=== PATIENT | female | born 1960 | race Caucasian/White ===

== ENCOUNTER 2020-09-24 10:05 | Outpatient (REF) | payer SELFPAY ==
[2020-09-24 11:55] LABS: Cholesterol 140 mg/dL
== END 2020-09-24 10:06 | disposition home or self-care (01) ==
LOC: HO.LNC 10:05
PROVIDERS: Visit Provider Pathology Anatomic Pathology & Clinical Pathology
DX: Z13.89 Encounter for screening for other disorder (principal)
CPT/HCPCS: 82465

== ENCOUNTER 2020-12-06 20:29 | Emergency (ER) | payer OTHER, SELFPAY ==
[2020-12-06 21:35] VITALS: BP 129/75; PULSE 86; RESP 16; TEMP 36.6; O2SAT 97
[2020-12-06 21:52] VITALS: BP 129/75; PULSE 86; RESP 16; TEMP 36.6; O2SAT 97; BMI 22.8
--- NOTE | 2020-12-06 22:40 | ED.WOUNDLAC ---
HPI - Wound/Laceration General Chief Complaint: Wound/Laceration Stated Complaint: Finger lac Time Seen by Provider: 12/06/20 22:40 Source: patient Mode of arrival: ambulatory History of Present Illness HPI narrative: This is a 60-year-old female who presents after accidental laceration to dorsal aspect of index and middle fingers at the DIP that occurred just prior to arrival. Patient denies any numbness/tingling or inability to move fingers in normal fashion. She confirms that her last tetanus was in 2018. Related Data Allergies Allergy/AdvReac Type Severity Reaction Status Date / Time Sulfa (Sulfonamide Allergy Rash Verified 12/06/20 21:51 Antibiotics) Review of Systems Review of Systems: Pertinent positives and negatives as stated in HPI 10 point review of systems is otherwise negative. PMFSH Past Medical History Source: nursing notes reviewed Medical History No known health problems Social History Social History Advance Directives: No Physical Exam Vital Signs: Vital Signs: Last Vital Signs Temp 97.8 F 12/06/20 21:52 Pulse 86 12/06/20 21:52 Resp 16 12/06/20 21:52 BP 129/75 12/06/20 21:52 Pulse Ox 97 12/06/20 21:52 Body Mass Index 22.8 VITAL SIGNS: Reviewed. GENERAL: Well developed, well nourished, in no acute distress. NOSE: Nares patent bilateral OROPHARYNX: no oral lesions noted, posterior pharynx clear NECK: Supple, no adenopathy LUNGS: Normal breath sounds. SpO2<97> CARDIOVASCULAR: Regular rate and rhythm without noted murmurs ABDOMEN: Soft, non-tender, non-distended with bowel sounds. RIGHT INDEX/MIDDLE FINGER: 2 cm laceration involving proximal nail bed and distal to DIP of the index finger with good hemostasis and capillary refill less than 3 seconds with sensation intact, maintenance of full range of motion noted at MCP/PIP/DIP of index finger. Middle finger has superficial laceration approximately 1.5 cm that will not necessitate repair with sutures. NEUROLOGIC: Alert and oriented x 4. Strength and sensation to light touch were grossly intact x 4. Course Course Course Narrative: This is a 60-year-old female with history and clinical presentation consistent with laceration to dorsal aspect of right index finger which was repaired with 3 sutures and no noted complications. Patient was discharged with instructions to follow-up in 5 days for suture removal either to primary care provider or this emergency department. Procedures Laceration Laceration 1: Site: hand Side (If applicable): right Size (cm): 2 Description: linear Depth: simple, single layer Local Anesthetic: lidocaine 2% Amount of anesthesia used (mL): 5 Pre-repair: wound explored, irrigated extensively and deep structures intact Skin layer closed with: nylon Size (cm): 4-0 Number of sutures: 3 Technique: simple, interrupted Discharge Plan Discharge Clinical Impression: Laceration Patient Disposition: Home, Self-Care Instructions: Finger Laceration (ED), Care For Your Stitches (ED) Additional Instructions: May use [id number] Tylenol/ibuprofen as needed for pain control please follow the directions on the outside of the bottle. Cleanse injury gently with soap and water and blot dry, apply antibiotic ointment and cover with a Band-Aid. Do not hesitate to return to the emergency department should you develop any redness, swelling, purulence drainage or developed fevers, chills. Referrals: Melissa Mann DO [Primary Care Provider] - 5 days (Re-evaluation and outpatient management of sutures to right dorsal aspect index finger.)
[2020-12-06] MEDS: Lidocaine HCl 2 % MPF 5 ML VIAL INFILTRATI (22:50)
== END 2020-12-06 23:42 | disposition home or self-care (01) ==
PROVIDERS: Emergency Provider Student in an Organized Health Care Education/Training Program; PCP Internal Medicine
DX: S61.210A Laceration without foreign body of right index finger without damage to nail, initial encounter (principal); S61.212A Laceration without foreign body of right middle finger without damage to nail, initial encounter; W26.0XXA Contact with knife, initial encounter; Y93.9 Activity, unspecified; Y92.010 Kitchen of single-family (private) house as the place of occurrence of the external cause; Y99.9 Unspecified external cause status
CPT/HCPCS: 12002; 90471; 99284